=== PATIENT | male | born 1955 | race Caucasian/White ===

== ENCOUNTER 2017-04-18 07:19 | Outpatient (CLI) | payer OTHER ==
[~2017-04-18 07:19] MED LIST: AXID150 MG PO; COZAAR50 MG PO; DOLOGESIC CAPLE1 TAB PO; FIORICET TABLET1 TAB PO; JANUMET 50-1,1 UDTAB PO; LEVSIN0.125 MG PO; UROXATRAL10 MG PO
== END 2017-04-18 07:32 | disposition home or self-care (01) ==
LOC: LAB 07:19
DX: L29.0 Pruritus ani (principal); R19.4 Change in bowel habit; K57.30 Diverticulosis of large intestine without perforation or abscess without bleeding; K92.1 Melena; D50.9 Iron deficiency anemia, unspecified; E03.8 Other specified hypothyroidism; E78.2 Mixed hyperlipidemia; I11.9 Hypertensive heart disease without heart failure; E56.8 Deficiency of other vitamins; N39.0 Urinary tract infection, site not specified; Z12.11 Encounter for screening for malignant neoplasm of colon; R19.5 Other fecal abnormalities; E55.9 Vitamin D deficiency, unspecified

== ENCOUNTER 2017-04-18 08:15 | Outpatient (CLI) | payer OTHER | END 2017-04-18 13:57 | disposition home or self-care (01) | LOC: TOM 08:15 | DX: R42 Dizziness and giddiness (principal); L29.0 Pruritus ani; R19.4 Change in bowel habit; K57.30 Diverticulosis of large intestine without perforation or abscess without bleeding; K92.1 Melena ==

== ENCOUNTER 2017-04-18 09:55 | Outpatient (CLI) | payer OTHER | END 2017-04-18 10:02 | disposition home or self-care (01) | LOC: NUCLEAR 09:55 | DX: L29.0 Pruritus ani (principal); R19.4 Change in bowel habit; K57.30 Diverticulosis of large intestine without perforation or abscess without bleeding; K92.1 Melena ==

== ENCOUNTER 2017-05-16 08:16 | Outpatient (CLI) | payer OTHER | END 2017-05-16 15:00 | disposition home or self-care (01) | LOC: LAB 08:16 | DX: N18.2 Chronic kidney disease, stage 2 (mild) (principal); I10 Essential (primary) hypertension; R80.9 Proteinuria, unspecified; E11.21 Type 2 diabetes mellitus with diabetic nephropathy; E78.2 Mixed hyperlipidemia; E11.65 Type 2 diabetes mellitus with hyperglycemia ==

== ENCOUNTER 2017-06-06 07:39 | Outpatient (CLI) | payer OTHER | END 2017-06-06 07:40 | disposition home or self-care (01) | LOC: LAB 07:39 | DX: N40.1 Benign prostatic hyperplasia with lower urinary tract symptoms (principal); R31.9 Hematuria, unspecified; R97.20 Elevated prostate specific antigen [PSA] ==

== ENCOUNTER 2017-06-10 08:05 | Outpatient (CLI) | payer OTHER | END 2017-06-10 17:00 | disposition home or self-care (01) | LOC: TOM 08:05 | DX: R10.9 Unspecified abdominal pain (principal) ==

== ENCOUNTER 2017-07-15 07:07 | Outpatient (CLI) | payer OTHER | END 2017-07-15 07:28 | disposition home or self-care (01) | LOC: LAB 07:07 | DX: N40.1 Benign prostatic hyperplasia with lower urinary tract symptoms (principal); D35.00 Benign neoplasm of unspecified adrenal gland; I15.0 Renovascular hypertension ==

== ENCOUNTER 2017-07-24 07:17 | Outpatient (CLI) | payer OTHER | END 2017-07-24 07:30 | disposition home or self-care (01) | LOC: LAB 07:17 | DX: D50.9 Iron deficiency anemia, unspecified (principal); E03.9 Hypothyroidism, unspecified; E78.2 Mixed hyperlipidemia; I11.9 Hypertensive heart disease without heart failure; E56.8 Deficiency of other vitamins; N39.0 Urinary tract infection, site not specified; Z12.11 Encounter for screening for malignant neoplasm of colon; R19.5 Other fecal abnormalities; E55.9 Vitamin D deficiency, unspecified; N19 Unspecified kidney failure; R80.9 Proteinuria, unspecified ==

== ENCOUNTER 2017-08-30 08:13 | Outpatient (CLI) | payer OTHER | END 2017-08-30 08:25 | disposition home or self-care (01) | LOC: LAB 08:13 | DX: L29.0 Pruritus ani (principal); R19.4 Change in bowel habit; K57.30 Diverticulosis of large intestine without perforation or abscess without bleeding; K92.1 Melena; K64.2 Third degree hemorrhoids ==

== ENCOUNTER 2017-09-30 08:32 | Outpatient (CLI) | payer OTHER | END 2017-09-30 08:33 | disposition home or self-care (01) | LOC: LAB 08:32 | DX: L29.0 Pruritus ani (principal); R19.4 Change in bowel habit; K57.30 Diverticulosis of large intestine without perforation or abscess without bleeding; K92.1 Melena; K64.2 Third degree hemorrhoids ==

== ENCOUNTER 2017-10-22 06:15 | Day surgery (SDC) | payer OTHER ==
[2017-10-22] MEDS ORDERED: RECTICARE30 GM TOP (09:44)
== END 2017-10-22 10:50 | disposition home or self-care (01) ==
LOC: AMB-ENDOS 06:15
DX: K64.8 Other hemorrhoids (principal); R19.4 Change in bowel habit; Z86.010 Personal history of colon polyps; K64.2 Third degree hemorrhoids; K57.30 Diverticulosis of large intestine without perforation or abscess without bleeding